=== PATIENT | female | born 1955 | race Caucasian/White ===

== ENCOUNTER 2016-09-03 21:27 | Outpatient (CLI) | END 2016-09-03 21:28 | disposition short-term general hospital (02) | LOC: AMBL 21:27 | PROVIDERS: ATTEND Family Medicine | DX: R55 Syncope and collapse (principal); R11.2 Nausea with vomiting, unspecified; R10.9 Unspecified abdominal pain; R23.1 Pallor; R61 Generalized hyperhidrosis ==